=== PATIENT | female | born 1960 | race Caucasian/White ===

== ENCOUNTER 2024-11-07 11:28 | Outpatient (CLI) | payer BC, SELFPAY ==
--- NOTE | ~2024-11-07 | XR_ITS ---
XR foot RT min 3V 11/07/2024 11:50 Indication: 4 views right foot Procedure: 4 views right foot Comparison: No prior studies for comparison. Findings: There is a nondisplaced extra-articular fracture distal aspect of the fifth proximal phalan x. Lisfranc joint intact. There is a degenerative calcaneal enthesophyte at the plantar surface. Impression: 1: Nondisplaced extra-articular fracture distal aspect of the right fifth proximal phalanx. Reviewed, dictated and finalized at location B. Impression: 1: Nondisplaced extra-articular fracture distal aspect of the right fifth proxi mal phalanx.
== END 2024-11-07 11:29 | disposition home or self-care (01) ==
LOC: MICIMG 11:31
PROVIDERS: PCP Nurse Practitioner Family; Visit Provider Nurse Practitioner Family
DX: S62.524A Nondisplaced fracture of distal phalanx of right thumb, initial encounter for closed fracture (principal); X58.XXXA Exposure to other specified factors, initial encounter
CPT/HCPCS: 73630